=== PATIENT | female | born 1960 | race African-American/Black ===

== ENCOUNTER 2017-07-30 20:46 | Emergency (ER) | payer OTHER, MEDICAID ==
[2017-07-30 20:50] VITALS: BMI 42.7
[2017-07-30 20:54] VITALS: BP 137/65
--- NOTE | 2017-07-30 21:26 | DR.GENAD ---
HPI - PCP Primary Care Physician: ELIAN MARTE [facility] - Complaint/Symptoms Chief Complaint Doctors Comments: Patient states that she has had cough, congestion and bodyaches since yesterday. Chief Complaint:: PT STATES I'VE BEEN ACHING WITH C/C/C. I MIGHT BE DEHYDRATED BC I'VE BEEN NAUSEATED. - Source History Provided: Patient - Mode of Arrival Mode of Arrival: Ambulatory - Timing Onset of Chief Complaint: 07/28/17 PMH - PMH Past Medical History: Yes Past Medical History: CVA, Hypertension Past Surgical History: Yes Surgical History: Ortho Surgery - Family History History of Family Medical Conditions: Yes Family Medical History: Diabetes Mellitus, Hypertension - Social History Alcohol Use: None Do you use any recreational Drugs:: No Lives With: Family Lives Where: Home - infectious screening In the last 2 months have you had wt loss of >10#?: NO Have you had fever, night sweats or hemotysis?: No Have you traveled outside the country in the last 6 months?: No Isolation: Standard ROS - Review of Systems Eyes: No Symptoms Reported ENTM: Nose Discharge Respiratoy: No Symptoms Reported Cardiovascular: No Symptoms Reported Gastrointestinal/Abdominal: No Symptoms Reported Genitourinary: No Symptoms Reported Neurological: No Symptoms Reported Musculoskeletal: No Symptoms Reported Integumentary: No Symptoms Reported Hematologic/Lymphatic: No Symptoms Reported Endocrine: No Symptoms Reported Psychiatric: No Symptoms Reported All Other Systems: Reviewed and Negative PE - Vital Signs Vitals: Temperature 97.8 F Pulse Rate 75 Respiratory Rate 20 Blood Pressure 137/65 O2 Sat by Pulse Oximetry 100 - General Limitations: No Limitations General Appearance: Alert, In No Apparent Distress - Head Head Exam: Normal Inspection, Atraumatic - Eyes Eye exam: Normal Appearance, PERRL, EOMI - ENT ENT Exam: Normal Exam, Normal Oropharynx External Ear Exam: Normal External Inspection TM/Canal Exam: Bilateral Normal Nose Exam: Normal Nose Exam Mouth Exam: Normal Inspection Throat Exam: Normal Inspection - Neck Neck Exam: Normal Inspection, Full ROM - Chest Chest Inspection: Normal Inspection - Respiratory Respiratory Exam: Normal Lung Sounds Bilat Respiratory Exam: Bilateral Clear to Auscultation - Cardiovascular Cardiovascular Exam: Regular Rate, Normal Rhythm - Abdominal Exam Abdominal Exam: Normal Inspection Abdominal Tenderness: negative: RUQ, RLQ, LUQ, LLQ, Epigastrium, Suprapubic, Diffuse, Mild, Moderate, Severe, Other - Extremities Extremities Exam: Normal Inspection, Full ROM - Back Back Exam: Normal Inspection, Full ROM - Neurologic Neurological Exam: Alert, Oriented X3, CN II-XII Intact - Psychiatric Psychiatric Exam: Normal Affect - Skin Skin Exam: Warm, Dry, Intact Course - Reevaluation 1st: Unchanged ROR - Labs Reviewed Laboratory Results Reviewed?: Yes (Influenza A positive) Laboratory: Specimen Type Clean catch urine 07/30/17 21:35 Urine Color Yellow (YELLOW) 07/30/17 21:35 Urine Appearance Slightly hazy (CLEAR) 07/30/17 21:35 Urine pH 6.5 (5.0 - 8.0) 07/30/17 21:35 Ur Specific [place] 1.015 (1.000-1.030) 07/30/17 21:35 Urine Protein 1+ (NEGATIVE) 07/30/17 21:35 Urine Glucose (UA) Negative (NEGATIVE) 07/30/17 21:35 Urine Ketones Negative (NEGATIVE) 07/30/17 21:35 Urine Occult Blood 2+ (NEGATIVE) 07/30/17 21:35 Urine Nitrite Negative (NEGATIVE) 07/30/17 21:35 Urine Bilirubin Negative (NEGATIVE) 07/30/17 21:35 Urine Urobilinogen 1+ (NORMAL) 07/30/17 21:35 Ur Leukocyte Esterase 1+ (NEGATIVE) 07/30/17 21:35 Urine RBC 0-3 /HPF (NEGATIVE) 07/30/17 21:35 Urine WBC 0-3 /HPF (NEGATIVE) 07/30/17 21:35 Ur Squamous Epith Cells Numerous /HPF (NEGATIVE) 07/30/17 21:35 Urine Bacteria Trace /HPF (NEGATIVE) 07/30/17 21:35 Ur Culture Indicated? No/not indicated 07/30/17 21:35 Influenza Type A (PCR) Positive (NEGATIVE) A 07/30/17 21:35 Influenza Type B (PCR) Negative (NEGATIVE) 07/30/17 21:35 - Diagnosis Discharge Problem: Influenza A - Discharge Plan Condition: Stable - Follow ups/Referrals Follow ups/Referrals: NFD,None [Primary Care Provider] - 3 days - Instructions
[2017-07-30] MEDS ORDERED: ZOFRAN SYRUP 4 MG UDC PO ONE (21:27)
[2017-07-30] MEDS ORDERED: ZOFRAN SYRUP 4 MG UDC ONE (21:39)
[2017-07-30 21:50] LABS: BILIRUBIN,URINE NEGATIVE (NEGATIVE); BLOOD/HEMOGLOBIN,URINE 2+ (NEGATIVE); GLUCOSE, URINE NEGATIVE (NEGATIVE); KETONES,URINE NEGATIVE (NEGATIVE); LEUKOCYTE ESTERASE ,URINE 1+ (NEGATIVE); NITRITES,URINE NEGATIVE (NEGATIVE); PH,URINE 6.5 (5.0 - 8.0); PROTEIN,URINE 1+ (NEGATIVE); UROBILINOGEN,URINE 1+ (NORMAL)
[2017-07-30] MEDS ORDERED: TORADOL 30 MG VIAL IVP ONE (22:00)
[2017-07-30] MEDS ORDERED: TORADOL 60 MG VIAL IM ONE (22:02)
[2017-07-30 22:03] LABS: APPEARANCE,URINE SLIGHTLY HAZY (CLEAR); BACTERIA,URINE TRACE /HPF (NEGATIVE); COLOR,URINE YELLOW (YELLOW); RBC,URINE 0-3 /HPF (NEGATIVE); SQUAMOUS EPITHELIAL CELL,UR NUMEROUS /HPF (NEGATIVE)
[2017-07-30] MEDS ORDERED: TORADOL 60 MG VIAL ONE (22:03)
== END 2017-07-30 22:56 | disposition home or self-care (01) ==
LOC: ER 21:06
DX: J11.1 Influenza due to unidentified influenza virus with other respiratory manifestations (principal)
CPT/HCPCS: 81001; 87502; 96372; 99282; J1885; Q0162